=== PATIENT | female | born 1990 | race Caucasian/White ===

== ENCOUNTER 2019-06-02 15:26 | Emergency (ER) | payer OTHER ==
[~2019-06-02] VITALS: Ht 162.6 cm; Wt 83.9 kg
== END 2019-06-02 18:42 | disposition home or self-care (01) ==
LOC: ER 15:26
DX: L27.2 Dermatitis due to ingested food (principal); T78.1XXA Other adverse food reactions, not elsewhere classified, initial encounter; X58.XXXA Exposure to other specified factors, initial encounter

== ENCOUNTER 2023-07-14 22:30 | Inpatient (IN) | payer OTHER ==
[~2023-07-14] VITALS: Ht 162.6 cm; Wt 2.3 kg
[2023-07-14] MEDS ORDERED: CEFAZOLIN SODIUM 1,000 MG VIAL IV SCH (22:45)
[2023-07-14] MEDS ORDERED: CITRIC ACID/SODIUM CITRATE 30 ML BLIST.PACK PO SCH (22:45)
[2023-07-14] MEDS ORDERED: AMPICILLIN SODIUM 2,000 MG VIAL IV SCH (22:45)
[2023-07-14] MEDS ORDERED: RINGERS SOLUTION,LACTATED 1,000 ML IV SCH (22:45)
[2023-07-14] MEDS ORDERED: SYNTHROID75 MCG PO (22:49)
[2023-07-14] MEDS ORDERED: PRENATAL + DHA1 EAC1 PO (22:50)
[2023-07-14] MEDS ORDERED: MAXFE CAPLET1 EAC1 PO (22:50)
[2023-07-14] MEDS ORDERED: ACID REDUCER20 M1 PO (22:50)
[2023-07-14] MEDS ORDERED: OXYTOCIN 10 UNITS/ML VIAL ONE (22:57)
[2023-07-14] MEDS ORDERED: ERYTHROMYCIN BASE 3.5 GM OINT...G. OP ONE (22:58)
[2023-07-14 23:09] LABS: HEMATOCRIT 33.5 % (36.0-45.00); HEMOGLOBIN 11.7 g/dL (12.0-15.00); MEAN CELL VOLUME 86.4 fL (80.00-100.00); MEAN CORPUSCULAR HEMOGLOBIN 30.2 pg (27.00-32.0); MEAN CORPUSCULAR HGB CONC 34.9 g/dl (32.0-36.0); PLATELET COUNT 257 K/uL (150-450); RED BLOOD COUNT 3.87 M/uL (4.00-6.00); RED CELL DISTRIBUTION WIDTH 15.3 % (11.5-14.5)
[2023-07-14 23:24] LABS: INR < 0.93; PARTIAL THROMBOPLASTIN TIME 25.4 SECONDS (22.0-34.0); PROTHROMBIN TIME 9.7 SECONDS (9.0-11.5)
[2023-07-15] MEDS ORDERED: OXYTOCIN 10 UNITS/ML VIAL IV ONE (01:15)
[2023-07-15] MEDS ORDERED: MEPERIDINE HCL/PF 50 MG/ML VIAL IM PRN (01:15)
[2023-07-15] MEDS ORDERED: OXYTOCIN 1,000 ML IV SCH (01:15)
[2023-07-15] MEDS ORDERED: IBUprofen 400 MG TABLET PO PRN (01:15)
[2023-07-15] MEDS ORDERED: ERYTHROMYCIN BASE 1 GM TUBE OP ONE (01:15)
[2023-07-15] MEDS ORDERED: OxyCODONE HCL/APAP UD (PERCOCET) PO PRN (12:15)
[2023-07-15 13:20] LABS: HEMATOCRIT 28.1 % (36.0-45.00); HEMOGLOBIN 9.7 g/dL (12.0-15.00); MEAN CELL VOLUME 88.7 fL (80.00-100.00); MEAN CORPUSCULAR HEMOGLOBIN 30.5 pg (27.00-32.0); MEAN CORPUSCULAR HGB CONC 34.4 g/dl (32.0-36.0); PLATELET COUNT 200 K/uL (150-450); RED BLOOD COUNT 3.17 M/uL (4.00-6.00); RED CELL DISTRIBUTION WIDTH 15.2 % (11.5-14.5)
[2023-07-16] MEDS ORDERED: IRON/V.C/V.B12/FOLIC A/VIT. E 1 CAPL CAPLET PO SCH (09:00)
[2023-07-16] MEDS ORDERED: BISACODYL 10 MG/SUPP.RECT SUPP.RECT RECTAL ONE (11:30)
[2023-07-18] MEDS ORDERED: NITROFURANTOIN MONOHYD/M-CRYST 100 MG CAPSULE PO SCH (09:00)
[2023-07-18] MEDS ORDERED: POLYETHYLENE GLYCOL 3350 17 GM BLIST.PACK PO SCH (12:09)
[2023-07-18 13:25] LABS: PH,URINE 7.5 (5.0-8.0); URINE APPEARANCE Clear; URINE BILIRRUBIN Negative (NEGATIVE); URINE BLOOD Large; URINE COLOR Yellow; URINE GLUCOSE Negative (NEGATIVE); URINE LEUKOCYTE Small; URINE NITRATE Negative; URINE PROTEIN Trace (NEGATIVE); URINE UROBILINOGEN 0.2 E.U./dl
[2023-07-18 13:29] LABS: URINE BACTERIA 278.3 uL (0.0-1933); URINE EPITHELIAL CELLS 37.2 uL (0.0-38.8); URINE RBC 1089.5 uL (0.0-20.8); URINE WBC 114.5 uL (0.0-23.2)
== END 2023-07-19 15:54 | disposition home or self-care (01) | DRG 786 ==
LOC: OB/GYN 22:30 → LDR 22:30 → OB/GYN 07-15 01:59
PROVIDERS: ADMIT Obstetrics & Gynecology; ATTEND Obstetrics & Gynecology
PROC: 4A1HXCZ Monitoring of Products of Conception, Cardiac Rate, External Approach (ICD-10-PCS; 2023-07-14)
PROC: 10D00Z1 Extraction of Products of Conception, Low, Open Approach (ICD-10-PCS; principal; 2023-07-15)
DX: O32.1XX0 Maternal care for breech presentation, not applicable or unspecified (principal); O60.14X0 Preterm labor third trimester with preterm delivery third trimester, not applicable or unspecified; Z3A.36 36 weeks gestation of pregnancy; Z37.0 Single live birth; Z20.822 Contact with and (suspected) exposure to COVID-19